=== PATIENT | female | born 1975 | race Caucasian/White ===

== ENCOUNTER → 2023-10-24 16:05 | Outpatient (REF) | payer OTHER, SELFPAY | LOC: HWWDC 16:05 | PROVIDERS: ATTENDING PHYSICIAN Advanced Practice Midwife; FAMILY PHYSICIAN Nurse Practitioner Adult Health | DX: Z12.31 Encounter for screening mammogram for malignant neoplasm of breast (principal) | CPT/HCPCS: 77063; 77067 ==

== ENCOUNTER → 2024-11-25 08:06 | Outpatient (REF) | payer OTHER, SELFPAY | LOC: HWWDC 08:06 | PROVIDERS: ATTENDING PHYSICIAN Advanced Practice Midwife; FAMILY PHYSICIAN Nurse Practitioner Adult Health | DX: Z12.31 Encounter for screening mammogram for malignant neoplasm of breast (principal) | CPT/HCPCS: 77063; 77067 ==